=== PATIENT | female | born 1960 | race Caucasian/White ===

== ENCOUNTER → 2020-09-27 10:46 | Outpatient (CLI) | payer BC, SELFPAY ==
[2020-09-27 11:30] LABS: COVID19 -Nasal RAPID Negative (Negative)
== END ==
PROVIDERS: Visit Provider Physician Assistant
DX: Z20.822 Contact with and (suspected) exposure to COVID-19 (principal)
CPT/HCPCS: 87635

== ENCOUNTER → 2022-08-12 11:20 | Outpatient (CLI) | payer BC, SELFPAY ==
--- NOTE | 2022-08-12 11:22 | DI.RAD.S_ITS ---
PROCEDURE: XR RIBS LT MIN 3V W CXR1V INDICATIONS: Left posterior rib pain TECHNIQUE: 2 views of the left ribs were acquired, along with a single view chest. COMPARISON: None. FINDINGS: Surgical changes and devices: None. Skin marker adjacent to the left 10th rib. Bones and chest wall: No fractures or dislocations. No suspicious bony lesions. Overlying soft tissues appear unremarkable. Lungs and pleura: No pleural effusions or pneumothorax. Lungs appear clear. Mediastinum: Mediastinal contours appear normal. Heart size is normal. IMPRESSION: No displaced left-sided rib fracture. Dictated by: Roshan Miller M.D. on 08/12/2022 at 12:07 Approved by: Roshan Miller M.D. on 08/12/2022 at 12:09
== END ==
PROVIDERS: Referring Provider Physician Assistant; Visit Provider Physician Assistant
DX: R07.81 Pleurodynia (principal)
CPT/HCPCS: 71101

== ENCOUNTER 2022-10-09 07:18 | Emergency (ER) | payer BC, SELFPAY ==
[2022-10-09] VITALS (23 sets, daily range): BP systolic 120–152; BP diastolic 64–85; PULSE 56–88; RESP 16; TEMP 36.1; O2SAT 94–99; BMI 23.8
--- NOTE | 2022-10-09 07:22 | DI.RAD.S_ITS ---
PROCEDURE: XR ELBOW RT MIN 3V INDICATIONS: fall TECHNIQUE: 3 views of the elbow were acquired. COMPARISON: None. FINDINGS: Bones: On the lateral view, there is abnormal alignment seen, with the proximal ulna posteriorly displaced in relation to the distal humerus. No nolvia underlying fracture can be seen. Age-appropriate bony degenerative changes are seen. Soft tissues: There is a large elbow joint effusion. No suspicious soft tissue calcifications. IMPRESSION: Large elbow joint effusion, with abnormal alignment of the elbow on the lateral view, yet without nolvia dislocation or fracture. If it would be helpful for clinical management decision making in this patient with this given history, please consider a dedicated elbow CT for further evaluation. Dictated by: Jamil Peterson M.D. on 10/09/2022 at 7:38 Approved by: Jamil Peterson M.D. on 10/09/2022 at 7:41
--- NOTE | 2022-10-09 07:27 | ED_ITS ---
HPI - Fall General Chief Complaint: Fall Stated Complaint: fall, rt elbow injury, can't move arm Time Seen by Provider: 10/09/22 07:27 History of Present Illness HPI Narrative: 61-year-old female nonsmoker without chronic medical history presents with her in the chief complaint of elbow pain after ground level fall yesterday. She was walking up some stairs in their yd when she tripped and fell, landing on her elbow. She now has significant pain and decreased range of motion secondary to pain. She denies any numbness or tingling. She denies prodromal symptoms contributing to her fall such as dizziness, weakness or lightheadedness. She denies any head neck or back pain. She has no chest pain or trouble breathing. She denies any injury to shoulder or wrist. Related Data Previous Rx's Medication Instructions Recorded cyclobenzaprine 5 mg tablet 5 mg PO TID PRN muscle spasm #15 08/12/22 tabs hydrocodone 5 mg-acetaminophen 325 1 tab PO Q4-6H PRN pain #20 tabs 10/09/22 mg tablet ondansetron 4 mg disintegrating 4 mg PO TID-QID PRN nausea and 10/09/22 tablet vomiting #10 tabs Allergies Allergy/AdvReac Type Severity Reaction Status Date / Time No Known Drug Allergies Allergy Verified 10/09/22 07:42 Review of Systems Review of Systems Narrative: GENERAL: Denies chills, fatigue, malaise, fever, sweats. HEENT: Denies sinus pain, ear pain, sore throat, difficulty swallowing, dizziness. RESPIRATORY: Denies dyspnea, cough, wheezing, hemoptysis, sputum. CARDIOVASCULAR: Denies chest pain, palpitations, orthopnea, edema, GASTROINTESTINAL: Denies nausea, vomiting, abdominal pain, diarrhea, constipation, melena. : Denies dysuria, frequency, incontinence, hematuria, urinary retention. MUSCULOSKELETAL: See HPI SKIN: Denies rash, skin lesions, or other NEUROLOGIC: Denies weakness, headache, numbness, change in speech, confusion, seizures, incoordination. PSYCHIATRIC: No concerning psychosocial issues. 12 point review of systems is negative except for those stated above Patient History Social History Smoking Status: Never smoker Smoking Status: Never smoker Exam Narrative Exam Narrative: GEN: AOx3 and in mild distress EYES: Pupils are equal, round, and reactive to light and accommodation. Extraoccular muscles are intact bilaterally. There is no subconjunctival hemorrhage or exudate. CHEST: Lungs are clear to auscultation bilaterally and free of wheezes, rales, or rhonchi. Heart rate is regular rhythm, there are no murmurs, clicks, rubs, or gallops. There is no chest wall tenderness. ABD: Abdomen is soft and nontender. There is no guarding or rebound. Bowel sounds are normal in all 4 quadrants. There is no mass or organomegaly. EXT: right elbow tender to palpation. No obvious deformity, significant pain with range of motion, unclear if there is a mechanical obstruction, closed, isolated and neurovascularly intact, no shoulder or wrist pain SKIN: Warm, pink, and dry. No erythema or rash Initial Vital Signs Initial Vital Signs: Vital Signs Temperature 97.0 F L 10/09/22 07:22 Pulse Rate 88 10/09/22 07:22 Respiratory Rate 16 10/09/22 07:22 Blood Pressure 126/85 10/09/22 07:22 Pulse Oximetry 97 10/09/22 07:22 Oxygen Delivery Method Room Air 10/09/22 07:22 Procedures Orthopedic Joint Reduction Joint #1: Time Out Performed: Yes Side: right Joint Reduction Location: elbow Technique used: traction/counter-traction Post-reduction neuro exam: intact Post-reduction vascular: intact Post Reduction X-Ray Obtained: Yes Post Reduction X-Ray Results: reduced Splint Applied: Yes Patient Tolerated Procedure: Well Orthopedic Splinting/Casting Injury #1: Side: right Upper Extremity Injury Location: elbow Upper Extremity Immobilizer: sling/shoulder immobilizer and posterior splint Post splinting neuro exam: intact Post splinting vascular exam: intact Placed by: Provider Course Orders Ordered: ED Orders 10/09/22 07:22 XR elbow RT min 3V Stat 10/09/22 08:34 XR elbow RT 2V Stat 10/09/22 09:43 CT UE RT wo con Stat 10/09/22 10:53 XR elbow RT 2V Stat Discontinued Medications Midazolam HCl (Midazolam 2 Mg/2 Ml Vial) 2 mg IV NOW ONE Stop: 10/09/22 08:14 Last Admin: 10/09/22 08:28 Dose: 2 mg Documented By: NR Midazolam HCl (Midazolam 2 Mg/2 Ml Vial) 2 mg IV NOW ONE Stop: 10/09/22 08:29 Last Admin: 10/09/22 08:34 Dose: 1 mg Documented By: NR Midazolam HCl (Midazolam 2 Mg/2 Ml Vial) 2 mg IV NOW ONE Stop: 10/09/22 10:57 Last Admin: 10/09/22 11:03 Dose: 2 mg Documented By: NR Vital Signs Vital signs: Vital Signs - 8 hr 10/09/22 08:30 10/09/22 08:30 10/09/22 08:40 Pulse Rate 65 Blood Pressure 120/64 120/75 Pulse Oximetry 99 10/09/22 08:40 10/09/22 08:50 10/09/22 08:50 Pulse Rate 65 66 Blood Pressure 136/66 Pulse Oximetry 97 94 10/09/22 09:00 10/09/22 09:00 10/09/22 09:10 Pulse Rate 60 Blood Pressure 152/74 H 152/69 H Pulse Oximetry 97 10/09/22 09:10 10/09/22 09:34 10/09/22 09:40 Pulse Rate 58 L 67 66 Blood Pressure Pulse Oximetry 99 98 99 10/09/22 09:50 10/09/22 10:00 10/09/22 10:10 Pulse Rate 63 63 64 Blood Pressure Pulse Oximetry 99 96 97 10/09/22 10:20 10/09/22 10:30 10/09/22 10:40 Pulse Rate 66 74 72 Blood Pressure Pulse Oximetry 98 98 98 10/09/22 10:50 10/09/22 10:52 10/09/22 10:52 Pulse Rate 71 72 Blood Pressure 142/76 H Pulse Oximetry 95 99 10/09/22 11:00 10/09/22 11:00 10/09/22 11:10 Pulse Rate 65 Blood Pressure 142/77 H 131/79 Pulse Oximetry 97 10/09/22 11:10 10/09/22 11:20 10/09/22 11:20 Pulse Rate 74 61 Blood Pressure 143/84 H Pulse Oximetry 97 96 10/09/22 11:30 10/09/22 11:30 Pulse Rate 63 Blood Pressure 132/69 Pulse Oximetry 97 MDM - Fall MDM Narrative Medical decision making narrative: [61] year old patient presents with right elbow pain after fall Multiple etiologies for patient's symptoms considered including, but not limited to: [Fracture versus dislocation versus contusion versus other] Prior Charts reviewed in our EMR Primary Historian: patient Imaging reviewed: Elbow x-ray demonstrates subluxation. Patient given versed and gentle traction allows reduction confirmed by Xray Consultations: Patient presents with significant right elbow pain after fall, she does not remember if she landed directly on it or on an outstretched hand. She states when she attempted to move it immediately after she felt ?crunching? in her elbow and has had severe pain since. Initial x-ray shows a large effusion and what appears to be a subluxation but no obvious fracture or dislocation. She is given a small amount of Versed and reduction is attempted, I could feel improvement in alignment and range of motion, subsequent x-ray demonstrates improved alignment. Patient has significant ongoing pain however, CT of the upper extremity ordered to evaluate for suspected fracture Patient's symptoms improved over duration of stay with above-stated therapies. Findings and discharge diagnosis discussed with patient/family followed by verbalization of understanding Return precautions discussed with patient/family whom verbalize understanding of diagnosis and plan Discharge Plan Departure Patient Disposition: Home Clinical Impression: Elbow fracture, right Qualifiers: Encounter type: initial encounter Fracture type: closed Qualified Code(s): S42.401A - Unspecified fracture of lower end of right humerus, initial encounter for closed fracture Instructions: DI for Elbow Fracture, How to Prevent Falls Activity Restrictions/Additional Instructions: *You have been diagnosed with [right elbow fracture (coronoid process)] *What to do: *Please continue to take your regular medications as directed. [ x] New medication prescriptions sent to your pharmacy: [ [facility]] [ ] New medication written as a paper prescription [x] Tylenol and occasional Motrin for pain *Please follow up with [Niraj ] of [facility] in 2-3 days, call for an appointment. Let them know you were seen in the Emergency Department and that we ask that you be seen in follow up. We will electronically transmit a record of today's note if your PCP is in our system *Return to Emergency Department if you should have any new, worsening or concerning symptoms, such as [worsening pain, significant swelling, cold extremities, numbness, tingling, weakness or other bothersome symptoms Splint Care: Keep splint clean and dry. Elevated affected body part to decrease swelling. OK to use ice pack on the affected body part. Use for 15-20 minutes each time, for 5-6x per day. If you develop worsening pain, numbness, tingling, discoloration of the affected body part, loosen the splint by loosening the DOM wrap, and either see your doctor for an urgent re-assessment, or return to the Emergency Department. Return to the Emergency Department for any new or worsening symptoms. You have been prescribed a short course of narcotic medications. These are potentially dangerous and addictive medications that should be used carefully. While on these medications you cannot drive or operate heavy machinery. Additionally, you cannot sign legal documents or perform any duties such as this. Many people get constipated on narcotic medications so it would be advisab le to discuss stool softeners with the pharmacist when you pickling grader your prescription. Please understand that we cannot provide further refills of narcotics or controlled substances through the ED and your pain management will need to be through your Primary Care Provider Prescriptions: New hydrocodone-acetaminophen 5-325 mg tablet 1 tab PO Q4-6H PRN (Reason: pain) Qty: 20 0RF ondansetron 4 mg tablet,disintegrating 4 mg PO TID-QID PRN (Reason: nausea and vomiting) Qty: 10 0RF No Action cyclobenzaprine 5 mg tablet 5 mg PO TID PRN (Reason: muscle spasm) Qty: 15 0RF Referrals: Kirsten Healy MD [Physician] - Miscellaneous,MD Arturo [Primary Care Provider] - Stand Alone Forms: Patient Portal/API
[2022-10-09] MEDS: MIDAZOLAM 2 MG/2 ML VIAL IV ×3 (08:28→11:03)
--- NOTE | 2022-10-09 08:34 | DI.RAD.S_ITS ---
PROCEDURE: XR ELBOW RT MIN 3V INDICATIONS: repeat after mild reduction TECHNIQUE: 2 views of the elbow were acquired. COMPARISON: [facility], CR, XR ELBOW RT MIN 3V, 10/09/2022, 7:29. FINDINGS: Bones: The elbow is now normally aligned. No fracture is seen. Soft tissues: There is a large joint effusion. IMPRESSION: Normal alignment of the elbow. Large elbow joint effusion. Dictated by: Jamil Peterson M.D. on 10/09/2022 at 7:53 Approved by: Jamil Peterson M.D. on 10/09/2022 at 7:54
--- NOTE | 2022-10-09 09:43 | DI.CT.S_ITS ---
PROCEDURE: CT UE RT WO CON INDICATIONS: severe pain in elbow after fall, no obvious fx on xray TECHNIQUE: Noncontrast 1-1.5 mm axial sections were acquired through the elbow joint, with coronal and sagittal reformats. COMPARISON: None. FINDINGS: Image quality: Excellent. Bones: There is abnormal subluxation of the elbow seen, with the olecranon subluxed posteriorly in relation to the distal humerus, with the humeral epicondyles perched along the coronoid process. There is a fracture seen of the coronoid process, which is best demonstrated on series 5, image 144, measuring 9 mm. Soft tissues: A large elbow joint effusion is seen. Soft tissue swelling is seen. IMPRESSION: Fracture of the coronoid process. Elbow partial dislocation/subluxation. Large oval joint effusion Dictated by: Jamil Peterson M.D. on 10/09/2022 at 9:06 Approved by: Jamil Peterson M.D. on 10/09/2022 at 9:08
--- NOTE | 2022-10-09 10:53 | DI.RAD.S_ITS ---
PROCEDURE: XR ELBOW RT 2V INDICATIONS: post reduction, splint, per ortho TECHNIQUE: 2 views of the elbow were acquired. COMPARISON: [facility], CT, CT UE RT WO CON, 10/09/2022, 9:17. [facility], CR, XR ELBOW RT MIN 3V, 10/09/2022, 8:29. [facility], CR, XR ELBOW RT MIN 3V, 10/09/2022, 7:29. FINDINGS: Bones: No dislocation is now seen. The fracture fragment off of the coronoid process that is well seen by CT is not seen on the current study. Soft tissues: There is large joint effusion. The overlying casting material limits evaluation of fine detail. IMPRESSION: Resolved dislocation. The known coronoid process fracture fragment is not seen. Dictated by: Jamil Peterson M.D. on 10/09/2022 at 11:42 Approved by: Jamil Peterson M.D. on 10/09/2022 at 11:43
--- NOTE | 2022-10-09 11:28 | PM.CN ---
History of Present Illness Consult details Date Patient Seen: 10/09/22 Time Patient Seen: 11:28 Chief complaint: fall, rt elbow injury, can't move arm Reason for consult: Right elbow fracture dislocation Requesting provider: Rashel Harper Narrative: Patient is a 61-year-old female that had a fall onto an outstretched right arm. She is right-hand dominant. She lives in [facility] the other part. She denies any other injury other than her right upper extremity. After the fall she was unable to move her right elbow. Denies any numbness or tingling. She came to [facility] where she was found to have a left elbow subluxation. She had a reduction in the ER and then was taken to the CT scanner. In the CT scanner was found to have a recurrent subluxation of her elbows well as a small coronoid process fracture. Orthopedic surgery was consulted. Meds Home Medications and Allergies Home Medications Medication Instructions Recorded Confirmed Type cyclobenzaprine 5 mg tablet 5 mg PO TID PRN muscle spasm #15 08/12/22 08/12/22 Rx tabs hydrocodone 5 mg-acetaminophen 325 1 tab PO Q4-6H PRN pain #20 tabs 10/09/22 Rx mg tablet ondansetron 4 mg disintegrating 4 mg PO TID-QID PRN nausea and 10/09/22 Rx tablet vomiting #10 tabs Allergies Allergy/AdvReac Type Severity Reaction Status Date / Time No Known Drug Allergies Allergy Verified 10/09/22 07:42 Review of Systems Review of Systems ROS: Yes All systems reviewed with the patient and are negative except as otherwise documented Exam Vital Signs (past 8 hours): - 10/09/22 07:22 10/09/22 08:18 10/09/22 08:19 Temperature 97.0 F L Pulse Rate 88 60 Respiratory Rate 16 Blood Pressure 126/85 124/66 Pulse Oximetry 97 97 Oxygen Delivery Method Room Air 10/09/22 08:19 10/09/22 08:20 10/09/22 08:30 Temperature Pulse Rate 61 56 L Respiratory Rate Blood Pressure 120/64 Pulse Oximetry 97 97 Oxygen Delivery Method 10/09/22 08:30 10/09/22 08:40 10/09/22 08:40 Temperature Pulse Rate 65 65 Respiratory Rate Blood Pressure 120/75 Pulse Oximetry 99 97 Oxygen Delivery Method 10/09/22 08:50 10/09/22 08:50 10/09/22 09:00 Temperature Pulse Rate 66 Respiratory Rate Blood Pressure 136/66 152/74 H Pulse Oximetry 94 Oxygen Delivery Method 10/09/22 09:00 10/09/22 09:10 10/09/22 09:10 Temperature Pulse Rate 60 58 L Respiratory Rate Blood Pressure 152/69 H Pulse Oximetry 97 99 Oxygen Delivery Method 10/09/22 09:34 10/09/22 09:40 10/09/22 09:50 Temperature Pulse Rate 67 66 63 Respiratory Rate Blood Pressure Pulse Oximetry 98 99 99 Oxygen Delivery Method 10/09/22 10:00 10/09/22 10:10 10/09/22 10:20 Temperature Pulse Rate 63 64 66 Respiratory Rate Blood Pressure Pulse Oximetry 96 97 98 Oxygen Delivery Method 10/09/22 10:30 10/09/22 10:40 10/09/22 10:50 Temperature Pulse Rate 74 72 71 Respiratory Rate Blood Pressure Pulse Oximetry 98 98 95 Oxygen Delivery Method 10/09/22 10:52 10/09/22 10:52 Temperature Pulse Rate 72 Respiratory Rate Blood Pressure 142/76 H Pulse Oximetry 99 Oxygen Delivery Method Oxygen Delivery Method Room Air Narrative Exam Narrative: Alert oriented female in no acute distress sitting in the bed. Just recovered from the reduction and splinting of her right elbow. HEENT exam normocephalic atraumatic Respiratory exam lungs clear to auscultation breathing unlabored on room air Heart regular rate and rhythm Musculoskeletal exam She demonstrates active finger flexion and extension. Sensation is grossly intact median radial ulnar nerves distribution. Demonstrates AIN intact. Objective Imaging CT right upper extremity: My impression: Right elbow posterior subluxation, perched small coronoid process fracture Radiologist's impression: Bones:??There?is?abnormal?subluxation?of?the?elbow?seen,?with?the?olecranon?subluxed?posteriorly?in?relation?to?the?distal?humerus,?with?the?humeral?epicondyles?perched?along?the?coronoid?process.??There?is?a?fracture?seen?of?the?coronoid?process,?wh ich?is?best?demonstrated?on?series?5,?image?144,?measuring?9?mm.? Soft?tissues:??A?large?elbow?joint?effusion?is?seen.??Soft?tissue?swelling?is?seen. IMPRESSION:??Fracture?of?the?coronoid?process. Elbow?partial?dislocation/subluxation.?? Large?oval?joint?effusion Right elbow x-ray pre reduction: My impression: Right elbow x-rays pre reduction demonstrate subluxation elbow joint Radiologist's impression: MPRESSION:??Large?elbow?joint?effusion,?with?abnormal?alignment?of?the?elbow?on?the?lateral?view,?yet?without?nolvia?dislocation?or?fracture Postreduction x-rays right elbow: My impression: Two-view right elbow lateral and oblique demonstrate interval concentric reduction right elbow joint known coronoid process fracture is not well visualized, better visualized on CT scan [facility] Tobacco & Substance Use Smoking Status: Never smoker Assessment & Plan Assessment and plan (1) Fracture of coronoid process of left ulna: Qualifiers: Encounter type: initial encounter Fracture type: closed Fracture alignment: displaced Qualified Code(s): S52.042A - Displaced fracture of coronoid process of left ulna, initial encounter for closed fracture Status: Acute (2) Fracture dislocation of elbow joint: Qualifiers: Encounter type: initial encounter Fracture type: closed Laterality: right Qualified Code(s): S42.401A - Unspecified fracture of lower end of right humerus, initial encounter for closed fracture Status: Acute Plan Patient is a 61-year-old right-hand dominant female who sustained a fall onto an outstretched right upper extremity and a fracture dislocation of her elbow. She has a small coronoid process fracture but this has conferred instability to her elbow in extension where she subluxates and dislocates. We were able to get a concentric reduction at 90? of flexion and she is splinted in that position post reduction x-rays demonstrate concentric alignment of the elbow joint. Due to her instability she is recommended for likely surgical stabilization of the FX to prevent recurrent instability and posttraumatic arthritis. We will work to arrange follow-up with a upper extremity specialist. Until then she will stay in the splint flexed at 90? Moderate medical decision-making: X-rays and CT scan were independently interpreted. Instruction to patient and emergency room on splinting and positions of stability. And evaluation in the emergency room completed. Patient has an unstable elbow fracture dislocation. surgical repair is indicated. I will discuss the patient with my upper extremity partners regarding timing or refer as necessary. Time Spent With Patient Time with patient: 50 to 69 minutes with 50% spent counseling/coordinating care
== END 2022-10-09 11:51 | disposition home or self-care (01) ==
PROVIDERS: Emergency Provider Emergency Medicine
DX: S52.041A Displaced fracture of coronoid process of right ulna, initial encounter for closed fracture (principal); W18.30XA Fall on same level, unspecified, initial encounter
CPT/HCPCS: 24600; 29105; 36415; 73070; 73080; 73200; 99284; J2250

== ENCOUNTER → 2022-10-12 12:22 | Outpatient (CLI) | payer BC, SELFPAY ==
--- NOTE | 2022-10-12 | DI.MRI.S_ITS ---
PROCEDURE: MR ELBOW RT WO CON INDICATIONS: DISLOCATION / SURGERY ON MONDAY TECHNIQUE: Noncontrast coronal proton density fast spin echo and T2 fast spin echo with fat saturation, axial and sagittal T1 spin echo and T2 fast spin echo with fat saturation through the elbow. COMPARISON: [facility], CT, CT UE RT WO CON, 10/09/2022, 9:17. [facility], CR, XR ELBOW RT MIN 3V, 10/09/2022, 7:29. [facility], CR, XR ELBOW RT MIN 3V, 10/09/2022, 8:29. [facility], CR, XR ELBOW RT 2V, 10/09/2022, 10:52. FINDINGS: Image quality: Limited due to significant patient motion and elbow positioning. Lateral structures: The lateral ulnar collateral ligament and radial collateral ligament both appear mildly thickened at its lateral epicondylar insertion. The overlying common extensor tendon also appears thickened with intrasubstance T2 hyperintense signal at its lateral epicondylar insertion. Medial structures: The ulnar collateral ligament is not well seen at its proximal insertion concerning for ruptured UCL. The overlying common flexor tendon appears thickened with intrasubstance T2 hyperintense signal extending to musculotendinous junction. The ulnar nerve shows increased T2 hyperintense signal within the cubital tunnel. Anterior structures: The biceps and brachialis tendons both appear thickened as they insert onto the proximal radius and ulna, respectively. No bicipitoradial bursal fluid. The median and radial neurovascular bundles appear normal; no focal muscle atrophy to suggest nerve impingement. Posterior structures: The triceps tendon is grossly intact at its insertion on proximal olecranon . No significant olecranon bursal fluid. Bone and cartilage: Fracture involving coronoid process is seen with marrow edema better evaluated on previous CT study. No other area of abnormal marrow signal. Diffuse elbow soft tissue swelling. Moderate to large elbow joint effusion is seen, no calcified intra-articular loose bodies. IMPRESSION: 1. Limited study due to significant patient motion. 2. Fracture involving coronoid process with marrow edema and moderate to large joint effusion. Diffuse elbow soft tissue swelling. No other area of abnormal marrow signal is seen. 3. Low-grade sprain/partial-thickness tear involving lateral collateral ligaments. Tendinosis involving overlying common flexor tendon origin. 4. Suggestion of torn ulnar collateral ligament near its proximal insertion. Tendinosis and low-grade partial-thickness tear involving common flexor tendon origin extending to musculotendinous junction. T2 hyperintense signal involving ulnar nerve within cubital tunnel concerning for neuritis. 5. Suggestion of distal biceps, brachialis, and triceps tendinosis. No gross full-thickness tendon rupture. Dictated by: Javier Wagner M.D. on 10/12/2022 at 16:18 Approved by: Javier Wagner M.D. on 10/12/2022 at 16:26
== END ==
PROVIDERS: Referring Provider Orthopaedic Surgery; Visit Provider Orthopaedic Surgery
DX: S52.041A Displaced fracture of coronoid process of right ulna, initial encounter for closed fracture (principal); S53.491A Other sprain of right elbow, initial encounter; S53.104S Unspecified dislocation of right ulnohumeral joint, sequela
CPT/HCPCS: 73221